=== PATIENT | male | born 1955 | race Caucasian/White ===

== ENCOUNTER → 2021-10-16 | Outpatient (CLI) | payer MEDICARE ==
[~2021-10-16] MED LIST: IOHEXOL-350 75 ML VIAL IV ONE
== END | disposition home or self-care (01) ==
LOC: RAH 08:49
PROVIDERS: ATTEND Internal Medicine Cardiovascular Disease
DX: I12.9 Hypertensive chronic kidney disease with stage 1 through stage 4 chronic kidney disease, or unspecified chronic kidney disease (principal); N18.9 Chronic kidney disease, unspecified; I70.0 Atherosclerosis of aorta
CPT/HCPCS: 74170; Q9967

== ENCOUNTER → 2022-12-11 | Outpatient (CLI) | payer MEDICARE | END | disposition home or self-care (01) | LOC: RAH 07:59 | PROVIDERS: ATTEND Physician Assistant Medical | DX: I70.201 Unspecified atherosclerosis of native arteries of extremities, right leg (principal); M79.661 Pain in right lower leg | CPT/HCPCS: 93926; 93971 ==

== ENCOUNTER → 2022-12-26 | Outpatient (CLI) | payer MEDICARE ==
[~2022-12-26] MED LIST changes: +ACET-66 PO; +IBUP-2070 PO; -IOHEXOL-350 75 ML VIAL IV ONE
== END | disposition home or self-care (01) ==
LOC: SHCH 07:51
PROVIDERS: ATTEND Internal Medicine Cardiovascular Disease
DX: I71.40 Abdominal aortic aneurysm, without rupture, unspecified (principal)
CPT/HCPCS: 93978

== ENCOUNTER 2023-02-05 17:02 | Inpatient (IN) | payer MEDICARE ==
[~2023-02-05] VITALS: Ht 185.4 cm; Wt 76.1 kg
[2023-02-05 18:26] LABS: BASOPHILS # (AUTO) 0.05 K/uL (0.00-0.20); BASOPHILS % (AUTO) 0.5 % (0.0-5.0); EOSINOPHILS # (AUTO) 0.06 K/uL (0.00-0.70); EOSINOPHILS % (AUTO) 0.6 % (0.0-8.0); HEMATOCRIT 26.5 % (42-54); IMMATURE GRANULOCYTE ABSOLUTE 0.17 K/uL (0-1); LYMPHOCYTES % (AUTO) 28.9 % (21.0-51.0); MEAN CORPUSCULAR HEMOGLOBIN 33.7 pg (27.0-33.0); MEAN CORPUSCULAR HGB CONC 33.2 g/dL (32.0-36.0); MEAN CORPUSCULAR VOLUME 101.5 fL (79-99); MONOCYTES # (AUTO) 0.8 K/uL (0.1-1.0); MONOCYTES % (AUTO) 7.8 % (3.0-13.0); NEUTROPHILS # (AUTO) 6.3 K/uL (1.8-7.7); NEUTROPHILS % (AUTO) 60.6 % (40.0-77.0); RED BLOOD CELL COUNT(AUTO) 2.61 MIL/uL (4.50-6.20); RED CELL DISTRIBUTION WIDTH 13.7 % (11.0-15.5); WHITE BLOOD COUNT (AUTO) 10.4 K/uL (4.8-10.8)
[2023-02-05 18:34] LABS: PLATELET COUNT (AUTO) 722 K/uL (130-400)
[2023-02-05 18:36] LABS: INR < 0.93 (0.85-1.15); PROTHROMBIN TIME 9.8 SEC (9.6-11.6)
[2023-02-05 18:37] LABS: CREATININE 0.6 mg/dL (0.5-1.5); POTASSIUM 3.9 mmol/L (3.5-5.1)
[2023-02-05 18:38] LABS: PARTIAL THROMBOPLASTIN TIME 27.3 SEC (26.3-35.5)
[2023-02-05 18:46] LABS: BILIRUBIN,TOTAL 0.2 mg/dL (0.2-1.0); TOTAL PROTEIN, SERUM 6.6 g/dL (6.0-8.3)
[2023-02-05] MEDS: CLINDAMYCIN IVPB 600MG/50ML 50 ML IV SCH (18:46)
[2023-02-05] MEDS ORDERED: MORPHINE 4 MG SYG IM ONE (19:00)
[2023-02-05] MEDS ORDERED: 0.9%NACL 1000ML 1,000 ML IV ONE (19:00)
[2023-02-05] MEDS ORDERED: ONDANSETRON 4MG INJ IVP ONE (19:00)
[2023-02-05 19:02] LABS: PLATELET MORPHOLOGY COMMENT INCREASED
[2023-02-05 19:23] LABS: ADD UA MICROSCOPIC NO; APPEARANCE,URINE CLEAR (CLEAR); BILIRUBIN,URINE NEGATIVE (NEGATIVE); COLOR,URINE LIGHT-YELLOW (YELLOW); GLUCOSE, URINE (UA) NEGATIVE (NEGATIVE); KETONES,URINE NEGATIVE (NEGATIVE); LEUKOCYTE ESTERASE ,URINE NEGATIVE Leu/uL (NEGATIVE); NITRATE,URINE NEGATIVE (NEGATIVE); OCCULT BLOOD,URINE NEGATIVE (NEGATIVE); PH,URINE 5.5 (5.0-8.0); PROTEIN,URINE NEGATIVE (NEGATIVE); UROBILINOGEN,URINE 0.2 mg/dL (0.2-1.0)
[2023-02-05 19:38] LABS: ERYTHROCYTE SEDIMENTATION RATE 53 MM/HR (0-20)
[2023-02-05] MEDS ORDERED: ONDANSETRON 4MG INJ IV PRN (20:00)
[2023-02-05] MEDS ORDERED: ACETAMINOPHEN 325 MG TAB PO PRN ×2 (20:00)
[2023-02-05] MEDS ORDERED: LACTATED RINGERS 1000ML 2,397 ML IV ONE (20:00)
[2023-02-05] MEDS ORDERED: VANCOMYCIN PROTOCOL PER PHARMACY IV PRN (20:00)
[2023-02-05] MEDS: MORPHINE 4 MG SYG IV PRN (20:59)
[2023-02-05] MEDS: CEFEPIME HCL 1 GM VIAL IVPB SCH (20:59)
[2023-02-05] MEDS: VANCOMYCIN 1G/250ML KIT 250 ML IV SCH (22:06)
[2023-02-05] MEDS ORDERED: LORAZEPAM 2 MG/ML 1 ML VIAL IVP PRN (23:00)
[2023-02-05] MEDS ORDERED: PHARMACY COMMUNICATION MISC PRN (23:00)
[2023-02-05] MEDS: NICOTINE 14 MG/ 24 HR PATCH TD SCH (23:15)
[2023-02-05] MEDS: CHLORDIAZEPOXIDE HCL 25 MG CAP PO SCH (23:15)
[2023-02-06] VITALS (8 sets, daily range): BP systolic 137–163; BP diastolic 82–93; PULSE 74–101; RESP 18–20; O2SAT 96–99
[2023-02-06] MEDS: MORPHINE 2 MG SYG IV PRN ×4 (01:41→21:55)
[2023-02-06] MEDS: CLINDAMYCIN IVPB 600MG/50ML 50 ML IV SCH ×3 (02:32→18:34)
[2023-02-06] MEDS: CEFEPIME HCL 1 GM VIAL IVPB SCH ×3 (04:25→20:24)
[2023-02-06 05:46] LABS: BASOPHILS # (AUTO) 0.03 K/uL (0.00-0.20); BASOPHILS % (AUTO) 0.4 % (0.0-5.0); EOSINOPHILS % (AUTO) 1.3 % (0.0-8.0); HEMATOCRIT 22.4 % (42-54); LYMPHOCYTES % (AUTO) 25.7 % (21.0-51.0); MEAN CORPUSCULAR HGB CONC 34.4 g/dL (32.0-36.0); MEAN CORPUSCULAR VOLUME 101.8 fL (79-99); MONOCYTES # (AUTO) 0.8 K/uL (0.1-1.0); MONOCYTES % (AUTO) 10.3 % (3.0-13.0); NEUTROPHILS # (AUTO) 4.9 K/uL (1.8-7.7); PLATELET COUNT (AUTO) 569 K/uL (130-400); RED CELL DISTRIBUTION WIDTH 13.7 % (11.0-15.5)
[2023-02-06] MEDS: VANCOMYCIN 1G/250ML KIT 250 ML IV SCH ×3 (05:46→21:55)
[2023-02-06 06:10] LABS: INR 0.94 (0.85-1.15); PROTHROMBIN TIME 10.9 SEC (9.6-11.6)
[2023-02-06 06:11] LABS: PARTIAL THROMBOPLASTIN TIME 29.4 SEC (26.3-35.5)
[2023-02-06 06:47] LABS: CREATININE 0.7 mg/dL (0.5-1.5); MAGNESIUM 1.1 mg/dL (1.80-2.40); PHOSPHORUS 3.8 mg/dL (2.5-4.9)
[2023-02-06] MEDS: CHLORDIAZEPOXIDE HCL 25 MG CAP PO SCH ×4 (07:00→23:00)
[2023-02-06] MEDS: FAMOTIDINE 20MG TAB PO SCH ×2 (08:09→08:16)
[2023-02-06] MEDS: NICOTINE 14 MG/ 24 HR PATCH TD SCH ×2 (08:10→23:00)
[2023-02-06] MEDS: ENOXAPARIN SODIUM 40 MG/0.4 ML SYRINGE SQ SCH (08:10)
[2023-02-06] MEDS ORDERED: METO-391 PO (15:33)
[2023-02-06] MEDS ORDERED: HYDR-4060 PO (15:33)
[2023-02-06] MEDS ORDERED: LOSA100T59 PO (15:33)
[2023-02-06] MEDS ORDERED: TAMS-1 PO (15:33)
[2023-02-06] MEDS: MAGNESIUM 2GM PREMIX 50ML 50 ML IV PRN (16:53)
[2023-02-07] VITALS (7 sets, daily range): BP systolic 135–156; BP diastolic 72–92; PULSE 71–95; RESP 20–24; O2SAT 98
[2023-02-07] MEDS: CLINDAMYCIN IVPB 600MG/50ML 50 ML IV SCH ×3 (02:07→18:14)
[2023-02-07 03:17] LABS: BASOPHILS # (AUTO) 0.03 K/uL (0.00-0.20); BASOPHILS % (AUTO) 0.4 % (0.0-5.0); EOSINOPHILS # (AUTO) 0.06 K/uL (0.00-0.70); EOSINOPHILS % (AUTO) 0.8 % (0.0-8.0); HEMATOCRIT 23.3 % (42-54); IMMATURE GRANULOCYTE ABSOLUTE 0.05 K/uL (0-1); LYMPHOCYTES # (AUTO) 1.7 K/uL (1.0-4.8); LYMPHOCYTES % (AUTO) 21.5 % (21.0-51.0); MEAN CORPUSCULAR HEMOGLOBIN 34.5 pg (27.0-33.0); MEAN CORPUSCULAR HGB CONC 33.9 g/dL (32.0-36.0); MEAN CORPUSCULAR VOLUME 101.7 fL (79-99); MONOCYTES # (AUTO) 0.8 K/uL (0.1-1.0); MONOCYTES % (AUTO) 10.5 % (3.0-13.0); NEUTROPHILS # (AUTO) 5.3 K/uL (1.8-7.7); NEUTROPHILS % (AUTO) 66.2 % (40.0-77.0); PLATELET COUNT (AUTO) 567 K/uL (130-400); RED BLOOD CELL COUNT(AUTO) 2.29 MIL/uL (4.50-6.20); RED CELL DISTRIBUTION WIDTH 13.7 % (11.0-15.5)
[2023-02-07 03:22] LABS: CREATININE 0.6 mg/dL (0.5-1.5); POTASSIUM 3.9 mmol/L (3.5-5.1)
[2023-02-07] MEDS: CEFEPIME HCL 1 GM VIAL IVPB SCH ×3 (03:44→21:00)
[2023-02-07] MEDS: MORPHINE 2 MG SYG IV PRN ×2 (03:44→18:24)
[2023-02-07] MEDS: VANCOMYCIN 1G/250ML KIT 250 ML IV SCH ×2 (05:21→14:15)
[2023-02-07] MEDS: CHLORDIAZEPOXIDE HCL 25 MG CAP PO SCH ×3 (07:00→23:00)
[2023-02-07] MEDS: FAMOTIDINE 20MG TAB PO SCH (09:00)
[2023-02-07] MEDS: ENOXAPARIN SODIUM 40 MG/0.4 ML SYRINGE SQ SCH (09:13)
[2023-02-07] MEDS: MAGNESIUM 2GM PREMIX 50ML 50 ML IV PRN (09:13)
[2023-02-07] MEDS: NICOTINE 14 MG/ 24 HR PATCH TD SCH ×2 (09:13→23:00)
[2023-02-07] MEDS: MORPHINE 4 MG SYG IV PRN (09:33)
[2023-02-08] VITALS: BP 146/83; PULSE 75; RESP 18
[2023-02-08] MEDS: CLINDAMYCIN IVPB 600MG/50ML 50 ML IV SCH (02:47)
[2023-02-08] MEDS: MORPHINE 2 MG SYG IV PRN (03:38)
[2023-02-08 04:00] VITALS: BP 145/78; PULSE 72; RESP 18
[2023-02-08] MEDS: CEFEPIME HCL 1 GM VIAL IVPB SCH (04:56)
[2023-02-08] MEDS: CHLORDIAZEPOXIDE HCL 25 MG CAP PO SCH (06:55)
[2023-02-08 08:00] VITALS: BP 139/82; PULSE 73; RESP 16
[2023-02-08] MEDS: NICOTINE 14 MG/ 24 HR PATCH TD SCH (08:43)
[2023-02-08] MEDS: ENOXAPARIN SODIUM 40 MG/0.4 ML SYRINGE SQ SCH (08:43)
[2023-02-08] MEDS: FAMOTIDINE 20MG TAB PO SCH (08:43)
[2023-02-08 08:50] VITALS: O2SAT 96
[2023-02-08] MEDS ORDERED: VANCOMYCIN 1G/250ML KIT 250 ML IV SCH (09:00)
[2023-02-08] MEDS ORDERED: CLIN-141 PO (10:35)
== END 2023-02-08 11:30 | disposition home or self-care (01) | DRG 603 ==
LOC: EDH 17:02 → EDHIP 19:46 → 4CH 02-06 02:22
PROVIDERS: ADMIT Internal Medicine; ATTEND Internal Medicine
DX: L03.113 Cellulitis of right upper limb (principal); I10 Essential (primary) hypertension; F10.20 Alcohol dependence, uncomplicated; F17.210 Nicotine dependence, cigarettes, uncomplicated; Z88.0 Allergy status to penicillin; S42.91XD Fracture of right shoulder girdle, part unspecified, subsequent encounter for fracture with routine healing; W18.39XD Other fall on same level, subsequent encounter
CPT/HCPCS: 29105; 36415; 73020; 73080; 73130; 80048; 80053; 80202; 81003; 82550; 83605; 83735; 84100; 84145; 84484; 85025; 85610; 85651; 85730; 87040; 87088; G0378; J0692; J1650; J2270; J2405; J3370; J3475; J3490; J7030; J7120

== ENCOUNTER → 2023-04-13 | Outpatient (CLI) | payer MEDICARE ==
[~2023-04-13] MED LIST changes: -ACET-66 PO; +HYDR-4060 PO; -IBUP-2070 PO; +METO25TA3 PO; +PANT40TA PO; +TAMS-1 PO; +[UNRECOGNIZED DRUG - CODE] TD
== END | disposition home or self-care (01) ==
LOC: OIH 12:29
PROVIDERS: ATTEND Orthopaedic Surgery Orthopaedic Surgery of the Spine
DX: S42.201D Unspecified fracture of upper end of right humerus, subsequent encounter for fracture with routine healing (principal); X58.XXXD Exposure to other specified factors, subsequent encounter
CPT/HCPCS: 73030

== ENCOUNTER → 2023-05-19 | Outpatient (CLI) | payer MEDICARE | END | disposition home or self-care (01) | LOC: RAH 14:09 | PROVIDERS: ATTEND Internal Medicine Gastroenterology | DX: J44.9 Chronic obstructive pulmonary disease, unspecified (principal); R63.4 Abnormal weight loss; M47.815 Spondylosis without myelopathy or radiculopathy, thoracolumbar region; I70.0 Atherosclerosis of aorta | CPT/HCPCS: 71046 ==

== ENCOUNTER → 2023-05-20 | Outpatient (CLI) | payer MEDICARE ==
[~2023-05-20] MED LIST changes: +IOHEXOL 350 MG/ML 100ML INFUS..BTL IV ONE
== END | disposition home or self-care (01) ==
LOC: RAH 08:14
PROVIDERS: ATTEND Internal Medicine Gastroenterology
DX: K57.90 Diverticulosis of intestine, part unspecified, without perforation or abscess without bleeding (principal); R10.13 Epigastric pain; R63.4 Abnormal weight loss; J44.9 Chronic obstructive pulmonary disease, unspecified; M47.815 Spondylosis without myelopathy or radiculopathy, thoracolumbar region; I70.90 Unspecified atherosclerosis
CPT/HCPCS: 74178; Q9967

== ENCOUNTER → 2024-01-17 | Outpatient (CLI) | payer MEDICARE | END | disposition home or self-care (01) | LOC: RAH 09:44 | PROVIDERS: ATTEND Internal Medicine Cardiovascular Disease | DX: K57.30 Diverticulosis of large intestine without perforation or abscess without bleeding (principal); I70.0 Atherosclerosis of aorta; I70.8 Atherosclerosis of other arteries; I77.1 Stricture of artery; I71.40 Abdominal aortic aneurysm, without rupture, unspecified; R10.9 Unspecified abdominal pain | CPT/HCPCS: 74174; 71275; Q9967 ==

== ENCOUNTER 2024-04-07 09:00 | Inpatient (IN) | payer MEDICARE ==
[~2024-04-07] VITALS: Ht 182.9 cm; Wt 69.9 kg
[~2024-04-07 09:00] MED LIST changes: -HYDR-4060 PO; -IOHEXOL 350 MG/ML 100ML INFUS..BTL IV ONE; -METO25TA3 PO; -PANT40TA PO; -[UNRECOGNIZED DRUG - CODE] TD
[2024-04-07 10:13] LABS: BASOPHILS # (AUTO) 0.05 K/uL (0.00-0.20); BASOPHILS % (AUTO) 0.5 % (0.0-5.0); EOSINOPHILS # (AUTO) 0.03 K/uL (0.00-0.70); EOSINOPHILS % (AUTO) 0.3 % (0.0-8.0); HEMATOCRIT 40.2 % (42-54); IMMATURE GRANULOCYTE ABSOLUTE 0.02 K/uL (0-1); LYMPHOCYTES # (AUTO) 1.5 K/uL (1.0-4.8); LYMPHOCYTES % (AUTO) 16.1 % (21.0-51.0); MEAN CORPUSCULAR HEMOGLOBIN 35.1 pg (27.0-33.0); MEAN CORPUSCULAR HGB CONC 33.8 g/dL (32.0-36.0); MEAN CORPUSCULAR VOLUME 103.9 fL (79-99); NEUTROPHILS # (AUTO) 6.5 K/uL (1.8-7.7); NEUTROPHILS % (AUTO) 71.9 % (40.0-77.0); PLATELET COUNT (AUTO) 269 K/uL (130-400); RED BLOOD CELL COUNT(AUTO) 3.87 MIL/uL (4.50-6.20); RED CELL DISTRIBUTION WIDTH 13.5 % (11.0-15.5); WHITE BLOOD COUNT (AUTO) 9.1 K/uL (4.8-10.8)
[2024-04-07 10:20] VITALS: BP 175/93; PULSE 78; RESP 19; TEMP 97.2
[2024-04-07 10:21] LABS: CREATININE 0.8 mg/dL (0.5-1.3); POTASSIUM 4.3 mmol/L (3.5-5.1)
[2024-04-07 10:24] LABS: APPEARANCE,URINE CLEAR (CLEAR); BILIRUBIN,URINE NEGATIVE (NEGATIVE); COLOR,URINE DARK-YELLOW (YELLOW); GLUCOSE, URINE (UA) NEGATIVE (NEGATIVE); KETONES,URINE NEGATIVE (NEGATIVE); LEUKOCYTE ESTERASE ,URINE 25 Leu/uL (NEGATIVE); NITRATE,URINE NEGATIVE (NEGATIVE); OCCULT BLOOD,URINE NEGATIVE (NEGATIVE); PH,URINE 5.5 (5.0-8.0); PROTEIN,URINE 20 mg/dL (NEGATIVE)
[2024-04-07 10:27] LABS: ADD UA MICROSCOPIC YES
[2024-04-07 10:30] LABS: MUCUS,URINE RARE LPF (None Seen); RBC,URINE 0-1 /HPF (0-1); SQUAMOUS EPITHELIAL CELL,UR RARE /HPF (0-2); WBC,URINE 0-1 /HPF (0-1)
[2024-04-07 10:36] LABS: INR 0.96 (0.85-1.15); PROTHROMBIN TIME 10.4 SEC (9.6-11.6)
[2024-04-07 10:37] LABS: PARTIAL THROMBOPLASTIN TIME 26.2 SEC (26.3-35.5)
[2024-04-07] MEDS ORDERED: SUCR1TAB2 PO (10:50)
[2024-04-07] MEDS ORDERED: LOSA50TA64 PO (10:50)
[2024-04-07] MEDS ORDERED: FAMO40TA7 PO (10:50)
[2024-04-07] MEDS ORDERED: ATOR20TA65 PO (10:50)
--- NOTE | 2024-04-07 10:52 | EKG ---
[facility] Test Date: 2024-04-07 Test Time: 10:57:50 Pat Name: CESAR LUGO Department: Room: Gender: M [employer] Worker: [id number] : 1955 Requested By: Jarred ERICKSON Order Number: [id number] Reading MD: Daniel Armijo Measurements Intervals [place] Rate: 67 P: 73 CA: 165 QRS: 83 QRSD: 135 T: 68 QT: 405 QTc: 429 Interpretive Statements Sinus rhythm Right bundle branch block Compared to ECG 03/10/2023 18:27:24 Right bundle-branch block now present Electronically Signed On 04-09-2024 17:35:17 SUPERVISOR LENS GENERATING by Daniel Armijo Please click the below link to view image of tracing.
--- NOTE | 2024-04-07 11:05 | HMCIMG ---
CHEST 1VW HISTORY: Preop COMPARISON: None FINDINGS: A frontal projection of the chest was obtained. No acute pulmonary infiltrates is seen. The heart is normal in size. Prominent interstitial markings are seen. Degenerative changes are seen. Aortic calcifications are seen. IMPRESSION: 1. No acute pulmonary infiltrate is seen.
[2024-04-10] VITALS (29 sets, daily range): BP systolic -10–171; BP diastolic -10–96; PULSE 66–111; RESP 12–29; TEMP 97.3–98.4; O2SAT 97–100
[2024-04-10] MEDS: ceFAZolin SODIUM 2 GM VIAL ONE (05:45)
[2024-04-10] MEDS: CLINDAMYCIN IVPB 900MG/50ML 50 ML IV ONE (05:50)
[2024-04-10] MEDS ORDERED: MIDAZOLAM HCL 1 MG/ML 2ML VIAL ONE (06:55)
[2024-04-10] MEDS ORDERED: proPOFol 10 MG/ML 20ML VIAL IV ONE (06:55)
[2024-04-10] MEDS ORDERED: phenylEPHRINE HCL 10 MG/ML 1ML VIAL IV ONE (06:56)
[2024-04-10] MEDS ORDERED: rocuRONium bROMide 10MG/1ML 5ML VL ONE (06:56)
[2024-04-10] MEDS ORDERED: FENTanyl CITRate PF 50 MCG/1 ML 2ML VIAL ONE ×2 (06:57)
[2024-04-10] MEDS ORDERED: GLYCOPYRROLATE 0.2 MG/ML 5 ML VIAL ONE (06:57)
[2024-04-10] MEDS ORDERED: ondanSETRON 4MG INJ ONE (06:58)
[2024-04-10] MEDS ORDERED: NEOSTIGMINE METHYLSULFATE 1MG/ML IV ONE (06:58)
[2024-04-10] MEDS ORDERED: IODIXANOL 320 MG/ML 100 ML VIAL ONE ×2 (07:12→09:41)
[2024-04-10] MEDS ORDERED: HEParin 10,000 UNIT/10ML (1,000 UNIT/ML) VIAL ONE (07:12)
[2024-04-10] MEDS ORDERED: HEParin-NS 1,000 UNIT/500 ML 1,000 ML IV ONE (07:13)
[2024-04-10] MEDS ORDERED: NITROGLYCERIN 50MG VIAL ONE (07:13)
[2024-04-10] MEDS ORDERED: HEParin 1,000 UNIT VIAL ONE (07:14)
[2024-04-10] MEDS ORDERED: ePHEDrine SULFate 50 MG/ML AMPULE ONE (08:28)
[2024-04-10] MEDS: 0.9%NACL 1000ML 1,000 ML IV ONE (08:43)
[2024-04-10] MEDS ORDERED: METO50TA18 PO (08:46)
[2024-04-10] MEDS ORDERED: HEParin-NS 1,000 UNIT/500 ML 500 ML IV ONE ×2 (09:57→11:45)
[2024-04-10] MEDS ORDERED: 0.9%NACL 1000ML 1,000 ML IV SCH (12:00)
[2024-04-10] MEDS ORDERED: NOREPINEPHRIN 4MG/NS 250ML 250 ML IV PRN (12:00)
[2024-04-10] MEDS ORDERED: ondanSETRON 4MG INJ IV PRN (12:00)
[2024-04-10] MEDS ORDERED: DEXTROSE 50%-WATER 50 ML DISP.SYRIN IV PRN (12:00)
[2024-04-10] MEDS ORDERED: NITROGLYCERIN 50MG/D5W 250ML 250 BOT IV PRN (12:00)
[2024-04-10] MEDS ORDERED: ASPIRIN 81MG CHEW TAB PO ONE (12:00)
[2024-04-10] MEDS: LACTATED RINGERS 1000ML 0 ML IV ONE (12:50)
[2024-04-10] MEDS: ASPIRIN 81MG CHEW TAB PO ONE (14:08)
[2024-04-10] MEDS: SUCRALFATE 1 GM TABLET PO SCH (14:08)
[2024-04-10] MEDS: CLINDAMYCIN IVPB 300MG/50ML 50 ML IV SCH (15:23)
--- NOTE | 2024-04-10 15:50 | CONS ---
[facility] CONSULTATION NOTE Date of Service: Apr 10, 2024 Reason for Consultation: [Abdominal aortic aneurysm, S/P endoluminal repair on 04/10/2024 ] Requesting Physician: [ Dr. Orozco ] HISTORY OF PRESENT ILLNESS: 68-year-old male with past medical history of essential hypertension hyperlipidemia, CAD, paroxysmal atrial fibrillation, BPH COPD, heavy smoker, who had recent outpatient follow up with his primary coal deliverer for ongoing evaluation and management of abdominal aortic aneurysm. Patient had a recent CT angio of the abdominal aorta revealing presence of a dissection in the mid abdominal aorta, saccular aneurysm with the appearance of a penetrating ulcer. Upon further discussions with the patient he was given options for surgical intervention. Patient agreed to proceed with surgical interventions, and on 04/10/2024 underwent successful endoluminal graft placement in the left accessory renal artery, as well as successful bifurcated endoluminal graft placement in the abdominal aorta performed by Dr. Orozco. Patient tolerated procedure well, remains admitted to telemetry. Hospitalist team has been called on consult for medical mentioned. At the time of my examination patient is awake alert in no distress. He denied chest pain shortness of breath fever or chills. Most recent vitals reviewed stable. Labs are pending. Of note patient has also had a recent diagnosis of a lung mass, and having undergone a PET scan which results are not available to me at this time. He is followed in the outpatient setting by his primary boardmarker Dr. Shipman, and is pending oncology evaluation. REVIEW OF SYSTEMS CONSTITUTIONAL: Denies fevers, chills, or night sweats. No unintentional weight loss reported. NEUROLOGICAL: Denies headache, amaurosis fugax, motor weakness, sensory deficit , vertigo/spinning sensation, gait abnormalities, or tremors. ENT: No hearing loss, otalgia, otorrhea, rhinitis, rhinorrhea, hoarseness, or sore throat. CARDIOVASCULAR: As mentioned in HPI PULMONARY: Denies any shortness of breath, cough, phlegm/sputum, hemoptysis, pleuritic chest pain. SLEEP: Denies morning headaches, daytime somnolence or napping. Denies difficulty falling asleep, staying asleep, waking from sleep. Denies knowledge of snoring. GASTROINTESTINAL: Denies any type of dysphagia to either liquids or solids. Denies nausea, vomiting, pyrosis, early satiety, abdominal pain, diarrhea, constipation, or changes in stool consistency or caliber. Denies coffee-ground emesis, hematemesis, hematochezia, or melanotic stools. GENITOURINARY: Denies frequency, urgency, nocturia, hematuria or incontinence (Storage/Irritative symptoms.) Low urinary stream, straining to void, urinary intermittency or hesitancy, splitting of the voiding stream, terminal dribbling. ENDOCRINOLOGIC: Denies polyuria, polydipsia, polyphagia or heat/cold intolerances. HEMATOLOGIC: Denies thrombophilia/previous clots, or coagulopathy/bleeding disorders. ONCOLOGIC: Denies personal history of malignancy. DERMATOLOGIC: Denies rashes or pruritus. PSYCHIATRIC: Denies any suicidal or homicidal ideation. Denies hallucinations. PAST MEDICAL HISTORY: As mentioned in HPI PAST SURGICAL HISTORY: AAA repair Abdominal hernia repair Left inguinal hernia repair PAST SOCIAL HISTORY: Positive for heavy alcohol consumption, more than one bottle of wine per day. Positive for tobacco/cigarette smoking. No drug abuse. FAMILY HISTORY: CAD. Hypertension. Coded Allergies: Penicillins (Unverified Allergy, Intermediate, HIVES, 03/11/23) PHYSICAL EXAM GENERAL APPEARANCE: The patient is awake, alert, and oriented, in no acute cardiopulmonary distress. NEUROLOGICAL: Cranial nerves II-XII grossly intact. Motor is 5/5 in bilateral upper and lower extremities proximal to distal. No sensory deficits. HEENT: Face is symmetric. Pupils are equal and reactive. Extraocular movements are intact. NECK: Supple. No JVD. No thyromegaly. No submental, submandibular, pre- /postauricular, occipital or supraclavicular lymphadenopathy. CHEST: Normal chest expansion. No Telemetry. LUNGS: Absence of any rales, rhonchi or any wheezing. CARDIOVASCULAR: Regular. S1 and S2 normal. No appreciable rubs, murmurs or gallops. ABDOMEN: Soft, nontender, and nondistended. There is no rebound, voluntary guarding, or rigidity. : Gonsales in place, pink color urine output noted. EXTREMITIES: Non-edematous and not cyanotic. No clubbing. Good capillary refill. SKIN: No skin breakdown. Vital Sign (Last 24 Hours) 04/10/24 04/10/24 04/10/24 05:45 12:42 14:15 Temp 97.3 Pulse 69 Resp 16 B/P (MAP) 139/64 (89) Pulse Ox 98 O2 Delivery Non-Rebreather+ O2 Flow Rate 15 FiO2 100 LABS: Laboratory: Test 04/10/24 14:56 Range/Units Activated Partial Thromboplast Time 34.0 26.3-35.5 SEC DIAGNOSTICS / RADIOLOGY: [ ] ASSESSMENT: Abdominal aortic dissection with saccular aneurysm, status post endoluminal graft placement in the left accessory renal artery, and bifurcated endoluminal graft placement in the abdominal aorta on 04/10/2024. CAD Essential hypertension Hyperlipidemia BPH COPD Lung mass Current/active smoker PLAN: Continue admission to telemetry floor under hospitalist team Obtain home medications, reconcile and resume accordingly Patient is status post successful endoluminal graft placement as mentioned above. Continue to follow up with Cardiology recommendations Labs: CBC BMP PT/PTT, UA Pain control CLD and advance as tolerated DVT and GI prophylaxis P.r.n. medications for fever, pain, nausea, constipation Follow-up a.m. labs Further orders per hospital course ADVANCED CARE PLANNING 1. Which of the following were discussed? Hospice Care - No Therapeutic options - Yes Advance Directives - Yes Other discussions - 2. Discussed with who? The patient 3. Voluntary nature of this service was explained to the patient? Yes 4. Amount of time spent - __ 20 minutes 5. Reviewed by Physician? (if this service was performed by NPP) Yes DICKSON RAMIREZ Apr 10, 2024 15:50
[2024-04-10 16:30] LABS: CREATININE 0.9 mg/dL (0.5-1.3); MAGNESIUM 1.2 mg/dL (1.80-2.40); POTASSIUM 4.8 mmol/L (3.5-5.1)
[2024-04-10] MEDS: INSULIN humuLIN R 100 UNIT/ML 3ML SQ SCH (16:30)
[2024-04-10] MEDS: MAGNESIUM 2GM PREMIX 50ML 50 ML IV PRN (17:24)
[2024-04-10] MEDS: MELATONIN 5 MG TABLET PO ONE (20:03)
[2024-04-11] VITALS (13 sets, daily range): BP systolic 115–154; BP diastolic 64–94; PULSE 71–103; RESP 14–23; TEMP 98.1–98.4; O2SAT 94–98
[2024-04-11] MEDS: morPHINE 4 MG SYG IV PRN (00:25)
[2024-04-11 04:23] LABS: HEMATOCRIT 31.3 % (42-54); MEAN CORPUSCULAR HEMOGLOBIN 35.3 pg (27.0-33.0); MEAN CORPUSCULAR HGB CONC 34.2 g/dL (32.0-36.0); MEAN CORPUSCULAR VOLUME 103.3 fL (79-99); RED BLOOD CELL COUNT(AUTO) 3.03 MIL/uL (4.50-6.20); RED CELL DISTRIBUTION WIDTH 13.7 % (11.0-15.5); WHITE BLOOD COUNT (AUTO) 10.4 K/uL (4.8-10.8)
[2024-04-11 04:40] LABS: POTASSIUM 4.5 mmol/L (3.5-5.1)
--- NOTE | 2024-04-11 05:31 | PR ---
PROCEDURES PERFORMED: * Placement of pigtail catheter in the abdominal aorta. * Abdominal aortogram. * Selective celiac artery angiogram. * Selective SMA angiogram. * Selective right and left renal artery angiogram. * Selective left accessory renal artery angiogram. * Placement of an endoluminal graft Viabahn 5 x 15 cm in the left accessory renal vein. * Balloon angioplasty and stenting of the left common and external iliac arteries. * Placement of an endoluminal graft bifurcated [employer] Endurant IIs in the abdominal aorta with placement of right and left iliac extension limbs. * Percutaneous access and repair of the right and left common femoral arteries for 14-Swedish sheaths. INDICATIONS: * Saccular infrarenal abdominal aortic aneurysm with aortic dissection and contained ruptured features. * Peripheral vascular disease. * Accessory renal artery arising at the level of the aneurysm. COMPLICATIONS: None. TOTAL CONTRAST: Approximately 190 mL. ANESTHESIA: General anesthesia with endotracheal intubation. RETAIL SERVICE LEAD MERCHANDISER: Tom Orozco II MD ESTIMATED BLOOD LOSS: 100 mL. DESCRIPTION OF PROCEDURE: The patient was taken to the cardiac labor relations analyst after the appropriate operative consents were signed. He was prepped and draped in the usual fashion. After anesthesia was administered and the patient was endotracheally intubated, the left brachial artery was accessed and a 6-Swedish sheath was advanced in retrograde fashion by modified Seldinger technique. This was done utilizing ultrasound guidance. Ultrasound-guided access of the right and left common femoral artery was also performed and Preclose sutures were deployed after 6-Swedish sheath had been placed. The femorals were upsized to 9-Swedish sheath. At this point, left coronary bypass graft catheter was advanced and placed in the celiac trunk. This was imaged in multiplane and was patent with no significant stenotic lesions. The catheter was then repositioned into the SMA that was imaged and was felt to be patent with no significant stenotic lesions. Right and left renal arteries were imaged and were patent. The left accessory renal artery was imaged and had a 50% lesion in its proximal portion. The JOVITA was patent. At this point, a machine guide base winder 7-Swedish sheath was advanced over the indwelling wire and positioned selectively in the left accessory renal artery. A 0.014 wire was advanced to position the distal venous circulation. A Viabahn 5 x 15 mm was advanced and positioned into the left accessory renal artery, but not deployed. At this point, the left iliac artery at the junction of the external and internal iliac was ballooned with a 6 mm balloon because of inability to advance a 14 mm wire. A pigtail catheter was advanced to position into the abdominal aorta. Abdominal aortogram was performed identifying the landmarks in the area of dissection. The patient was also noted to have severe peripheral vascular disease with chronic occlusion of the left internal iliac artery and a 70% stenotic lesion in the right internal iliac artery. The right common iliac artery had a chronic-appearing dissection. At this point, the main body of the graft Endurant IIs was advanced from the right femoral artery and deployed below the level of renal arteries. The contralateral gate was cannulated, the contralateral limb was deployed and the ipsilateral limb was then deployed. The body and both limbs were simultaneously dilated with Endurant balloons. At this point, the left accessory renal Viabahn graft was deployed. Final angiogram was performed confirming patency of the celiac, SMA and both renals as well as the accessory left renal artery endoluminal graft. The patient had no evidence of endoleak. At this point, the Preclose sutures were completed and finalized with good hemostasis. The patient tolerated the procedure well, left the cardiac labor relations analyst in stable condition. FINAL IMPRESSION: * Successful endoluminal graft placement of the left accessory renal artery with a Viabahn 5 x 15 mm graft snorkel to be placed above the renal arteries. * Successful endoluminal graft placement of the infrarenal abdominal aorta with an Endurant IIs with right and left iliac extension limbs. * Successful balloon angioplasty of the left external and left common iliac arteries. PLAN: Continue to optimize medical management. TID: [id number] RECEIPT: [id number]
--- NOTE | 2024-04-11 07:42 | CONS ---
Consult Note Vitals/Labs Vital Signs Date Time Temp Pulse Resp B/P (MAP) Pulse Ox O2 Delivery O2 Flow Rate FiO2 04/11/24 05:55 88 17 141/85 98 Room Air 04/11/24 04:00 0 21 04/11/24 03:47 98.1 Laboratory Tests 04/10/24 14:56 04/11/24 03:59 REASON FOR CONSULT: Medical management HISTORY OF PRESENT ILLNESS: Patient is a 68-year-old male with past medical history significant for Essential hypertension, Hyperlipidemia, CAD, Paroxysmal atrial fibrillation, BPH, COPD, heavy smoker, who had recent outpatient follow up with his primary ratchet setter for ongoing evaluation and management of abdominal aortic aneurysm. A recent CT angio of the abdominal aorta revealed the presence of a dissection in the mid abdominal aorta, saccular aneurysm with the appearance of a penetrating ulcer. Upon further discussions with the patient he was given options for surgical intervention. Patient agreed to proceed with surgical interventions, and on 04/10/2024 underwent successful endoluminal graft placement in the left accessory renal artery, as well as successful bifurcated endoluminal graft placement in the abdominal aorta performed by Dr. Orozco. Interval History 04/11/24: Lying in bed at the time of evaluation. Alert and oriented and in no obvious distress. Patient is status post endoluminal graft placement in the left accessory renal artery and the abdominal aorta post op day 1. Denies any chest pain, shortness of breath or palpitations. States that he is ambulating around his room but has not had a bowel movement yet. Patient is on a full liquid diet with orders to advance as tolerated. Patient was seen by Dr Orozco this morning. Assessment showed a left brachial swelling which is erythematous and measures about 5cm x5cm in diameter. An ultrasound of the left upper extremity ordered to rule out a hematoma. Vital signs from this morning were unremarkable. Labs showed a trending down of Hb from 13.6 TO 10.7. Otherwise other labs were unremarkable. SOCIAL HISTORY: *Heavy alcohol drinker *Smokes tobacco and cigarettes *Denies recreational drug use ASSESSMENT: Status post endoluminal graft placement in the left accessory renal artery and the abdominal aorta post op day 1. Essential Hypertension Heavy alcohol consumption, more than 1 bottle of wine per day CAD POA Hyperlipidemia POA BPH POA COPD POA Lung mass POA Current/active smoker PLAN: Status post endoluminal graft placement in the left accessory renal artery and the abdominal aorta post op day 1. *Patient is ambulating around his room but has not had a bowel movement yet. *Patient is on a full liquid diet with orders to advance as tolerated. *Seen by Dr Orozco today post surgery *Patient with left brachial erythema and swelling. Ultrasound ordered to r/o a hematoma Hyperlipidemia *Continue with Atorvastatin 20mg as ordered. Essential Hypertension POA CAD POA *Continue with metoprolol 100mg daily as ordered. *Continue with Losartan 50mg daily as ordered. *Continue with Aspirin 81mg daily as ordered *Follow hemodynamics. *Vital signs per facility protocol COPD POA Lung mass POA *Supplemental oxygen as needed. *BiPAP as necessary for respiratory distress *Titrate Fio2 to keep Spo2> or = 90% *DuoNeb and CPT as needed *IS hourly while awake for pulmonary hygiene *Out of bed to chair as tolerated. *Maintain aspiration precautions at all times. Heavy alcohol consumption, more than 1 bottle of wine per day Current/active smoker *Educated about the need to quit smoking and excessive drinking. Patient History: Asthma FATHER Carcinomas MOTHER, , Cause: Metastasis to brain SISTER (LUNG CA METS) Chronic obstructive pulmonary disease MOTHER, , Cause: Metastasis to brain Hypertension MOTHER, , Cause: Metastasis to brain Allergies: Coded Allergies: Penicillins (Unverified Allergy, Intermediate, HIVES, 03/11/23) Medications Current Medications Cefazolin Sodium 2 gm STK-MED ONCE .ROUTE; Start 04/10/24 at 05:45; Stop 04/10/24 at 05:46; Status DC Lactated Ringer's 0 ml @ As Directed STK-MED ONCE IV; Start 04/10/24 at 05:45; Stop 04/10/24 at 05:46; Status DC Sodium Chloride 1,000 ml @ As Directed STK-MED ONCE IV Last administered on 04/10/24at 08:43; Start 04/10/24 at 05:50; Stop 04/10/24 at 05:50; Status DC Clindamycin HCl/ Dextrose 50 ml @ As Directed STK-MED ONCE IV; Start 04/10/24 at 05:50; Stop 04/10/24 at 05:51; Status DC Midazolam HCl 2 mg STK-MED ONCE .ROUTE; Start 04/10/24 at 06:55; Stop 04/10/24 at 06:56; Status DC Propofol 200 mg STK-MED ONCE IV; Start 04/10/24 at 06:55; Stop 04/10/24 at 06:56; Status DC Phenylephrine HCl 10 mg STK-MED ONCE IV; Start 04/10/24 at 06:56; Stop 04/10/24 at 06:56; Status DC Rocuronium [place] 50 mg STK-MED ONCE .ROUTE; Start 04/10/24 at 06:56; Stop 04/10/24 at 06:56; Status DC Fentanyl Citrate 100 mcg STK-MED ONCE .ROUTE; Start 04/10/24 at 06:57; Stop 04/10/24 at 06:57; Status DC Fentanyl Citrate 100 mcg STK-MED ONCE .ROUTE; Start 04/10/24 at 06:57; Stop 04/10/24 at 06:57; Status DC Glycopyrrolate 1 mg STK-MED ONCE .ROUTE; Start 04/10/24 at 06:57; Stop 04/10/24 at 06:58; Status DC Neostigmine Methylsulfate 10 mg STK-MED ONCE IV; Start 04/10/24 at 06:58; Stop 04/10/24 at 06:58; Status DC Ondansetron HCl 4 mg STK-MED ONCE .ROUTE; Start 04/10/24 at 06:58; Stop 04/10/24 at 06:58; Status DC Iodixanol 100 ml STK-MED ONCE .ROUTE; Start 04/10/24 at 07:12; Stop 04/10/24 at 07:12; Status DC Heparin Sodium (Porcine) 10,000 unit STK-MED ONCE .ROUTE; Start 04/10/24 at 07:12; Stop 04/10/24 at 07:13; Status DC Heparin Sodium/ Sodium Chloride 1,000 ml @ As Directed STK-MED ONCE IV; Start 04/10/24 at 07:13; Stop 04/10/24 at 07:13; Status DC Nitroglycerin 50 mg STK-MED ONCE .ROUTE; Start 04/10/24 at 07:13; Stop 04/10/24 at 07:13; Status DC Heparin Sodium (Porcine) 1,000 unit STK-MED ONCE .ROUTE; Start 04/10/24 at 07:14; Stop 04/10/24 at 07:14; Status DC Ephedrine Sulfate 50 mg STK-MED ONCE .ROUTE; Start 04/10/24 at 08:28; Stop 04/10/24 at 08:28; Status DC Iodixanol 100 ml STK-MED ONCE .ROUTE; Start 04/10/24 at 09:41; Stop 04/10/24 at 09:41; Status DC Heparin Sodium/ Sodium Chloride 500 ml @ As Directed STK-MED ONCE IV; Start 04/10/24 at 09:57; Stop 04/10/24 at 09:57; Status DC Heparin Sodium/ Sodium Chloride 500 ml @ As Directed STK-MED ONCE IV; Start 04/10/24 at 11:45; Stop 04/10/24 at 11:45; Status DC Ondansetron HCl 4 mg Q6H PRN IV; Start 04/10/24 at 12:00; Stop 05/10/24 at 11:59 Morphine Sulfate 3 mg Q4H PRN IV Last administered on 04/11/24at 00:25; Start 04/10/24 at 12:00; Stop 04/17/24 at 11:59 Morphine Sulfate 5 mg Q4H PRN IV Last administered on 04/10/24at 15:23; Start 04/10/24 at 12:00; Stop 04/15/24 at 11:59 Sodium Chloride 1,000 ml @ 150 mls/hr AD IV; Start 04/10/24 at 12:00; Stop 04/11/24 at 06:00; Status DC Dextrose 50 ml AD PRN IV; Start 04/10/24 at 12:00; Stop 05/10/24 at 11:59 Insulin Human Regular INSULIN SLIDING SCAL... ACHS SQ; Start 04/10/24 at 16:30; Stop 05/10/24 at 16:29 Aspirin 81 mg DAILY PO; Start 04/11/24 at 09:00; Stop 05/11/24 at 08:59 Aspirin 81 mg ONCE ONCE PO; Start 04/10/24 at 12:00; Stop 04/10/24 at 12:18; Status DC Clindamycin HCl/ Dextrose 50 ml @ 100 mls/hr Q8H IV Last administered on 04/10/24at 23:15; Start 04/10/24 at 16:00; Stop 04/11/24 at 00:29; Status DC Nitroglycerin/ Dextrose 250 ml @ 0 mls/hr PROTOCOL PRN IV; Start 04/10/24 at 12:00; Stop 05/10/24 at 11:59 Norepinephrine 250 ml @ 0 mls/hr PROTOCOL PRN IV; Start 04/10/24 at 12:00; Stop 05/10/24 at 11:59 Atorvastatin Calcium 20 mg HS PO; Start 04/11/24 at 21:00; Stop 05/11/24 at 20:59 Losartan Potassium 50 mg DAILY PO; Start 04/11/24 at 09:00; Stop 05/11/24 at 08:59 Metoprolol Tartrate 100 mg DAILY PO; Start 04/11/24 at 09:00; Stop 05/11/24 at 08:59 Sucralfate 1 gm TID PO Last administered on 04/10/24at 20:03; Start 04/10/24 at 14:00; Stop 05/10/24 at 13:59 Tamsulosin HCl 0.4 mg DAILY PO; Start 04/11/24 at 09:00; Stop 05/11/24 at 08:59 Famotidine 20 mg DAILY PO; Start 04/11/24 at 09:00; Stop 05/11/24 at 08:59 Aspirin 324 mg ONCE ONCE PO Last administered on 04/10/24at 14:08; Start 04/10/24 at 12:30; Stop 04/10/24 at 12:31; Status DC Magnesium Sulfate 50 ml @ 0 mls/hr PROTOCOL PRN IV Last administered on 04/10/24at 20:04; Start 04/10/24 at 17:00; Stop 05/10/24 at 16:59 Melatonin 5 mg ONCE ONCE PO Last administered on 04/10/24at 20:03; Start 04/10/24 at 21:00; Stop 04/10/24 at 21:01; Status DC JUAN SALMON MD Apr 11, 2024 07:42
--- NOTE | 2024-04-11 07:45 | PN ---
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 Indeterminate diastolic dysfunction. Left atrium is moderately dilated Non-STEMI type 2, likely due to supply demand ischemia Lexiscan Cardiolite 09/09/23 normal stress test, normal left ventricular perfusion study, scan indicates low risk for cardiac events PET scan pending for evaluation of lung nodules 02/10/24, [place] [facility] and Oskar peck HDL cholesterol ranges between 123 and 148 and LDL ranges between 45 and 58 from March 2022-August 2023-February 2024 History syncope before October 2021 Paroxysmal atrial fibrillation documented by monitoring before October 2021 Patient declined anticoagulation for atrial fibrillation because he wanted to continue using alcohol and desired not to take a drug that could cause bleeding History of severe GI bleeding requiring transfusion with documentation of peptic ulcer as per the patient's statement, 2021 Interval History: This 68-year-old male patient came to the hospital for endoluminal graft repair of abdominal aorta for aortic dissection with saccular aneurysm of contained rupture. Patient underwent endoluminal graft repair of abdominal aorta with snorkeling of left accessory renal artery of CATH LAB NURSE of left common external iliac artery on 04/10/2024. The procedure went well without any complications. The patient has been doing better and is stable since the surgery. His vitals are stable. Patient has been afebrile. Temperature 98.1 F, pulse rate running in 80s, respiratory rate 17 and blood pressure is 141/85 mmHg, SpO2 98% on room air. He diuresed 115 mL yesterday. The patient has developed developed left brachial hematoma due to 7 Japanese sheath. On examination the patient has a redness and swelling on his left brachial side. The hematoma is approximately 5 x 5 cm in size. It is nontender on palpation. The radial pulses are palpable. The dorsalis pedis pulses are palpable. The abdomen is soft and the femoral access dressing is clean and dry. Patient's hemoglobin is to 10.7 from 13.6, hematocrit 31.3, MCV 103.3 and WBC 10.4. His sodium is 136, potassium 4.5, chloride 103, carbon dioxide 28, BUN 14, create 1. Random glucose 122 and total calcium 7.6. His magnesium is 2.30 today after replacement. Patient continues taking atorvastatin 20 mg, famotidine 20 mg, Flomax 0.4 mg, metoprolol tartrate 100 mg, losartan potassium 50 mg, aspirin 81 mg and sucralfate 1 g. Physical Examination: GENERAL: [No acute distress.] HEAD: [Normal with no signs of head trauma.] EYES: [PERRLA, EOMI, conjunctiva and sclera normal.] ENT: [Hearing grossly intact, normal oropharynx.] NECK: [Supple without JVD. There is no tenderness, lymphadenopathy, or masses. No thyromegaly. Normal carotid upstrokes without bruits.] LUNGS: [Clear breath sounds bilaterally. No wheezes, or rhonchi.] HEART: [Normal rate and rhythm. Normal S1 and S2 without mumurs, gallop or rub.] VASC: [Peripheral pulses +2 bilaterally.] ABD: [Bowel sounds normal, soft, nontender, no masses, no organomegaly. No audible bruits.] : [Not examined] LYMPH: [No lymphadenopathy noted.] EXT: Hematoma on left upper extremity on brachial side. SKIN: [No rashes or lesions noted.] NEURO: [Awake, alert, and oriented x3. No focal sensory or strength deficits noted.] Laboratory: [ ] Hematology Labs: Test 04/11/24 03:59 Range/Units White Blood Count 10.4 4.8-10.8 K/uL Red Blood Count 3.03 L 4.50-6.20 MIL/uL Hemoglobin 10.7 L 14.0-18.0 g/dL Hematocrit 31.3 L 42-54 % Mean Corpuscular Volume 103.3 H 79-99 fL Mean Corpuscular Hemoglobin 35.3 H 27.0-33.0 pg Mean Corpuscular Hemoglobin Concent 34.2 32.0-36.0 g/dL Red Cell Distribution Width 13.7 11.0-15.5 % Platelet Count 198 130-400 K/uL Mean Platelet Volume 10.0 7.5-10.5 fL Nucleated Red Blood Cells 0.0 0.0-0.19 % Chemistry Labs: Test 04/11/24 03:59 04/10/24 16:07 Range/Units Sodium Level 136 136-145 mmol/L Potassium Level 4.5 3.5-5.1 mmol/L Chloride Level 103 101-111 mmol/L Carbon Dioxide Level 28 21-32 mmol/L Blood Urea Nitrogen 14 7-18 mg/dL Creatinine 1.0 0.5-1.3 mg/dL Glomerular Filtration Rate Calc 82 >90 mL/min Random Glucose 122 H 70-105 mg/dL Total Calcium 7.6 L 8.5-10.1 mg/dL Magnesium Level 2.30 1.80-2.40 mg/dL Whole Blood Glucose 74 70-110 MG/DL Coagulation Labs: Test 04/10/24 14:56 Range/Units Activated Partial Thromboplast Time 34.0 26.3-35.5 SEC Diagnostics / Radiology: [facility] [id number] [place] [id number] IMAGING REPORT Signed PATIENT: CESAR LUGO MR#: [id number] : 1955 SEX: M AGE: 68 LOCATION: ORDER 1 STATUS: PRE IN REPORT#: [id number] SERVICE 9 REASON: PRE OP ORDERING PHYSICIAN: Jarred ERICKSON II, MD PROCEDURE: CXR1VW - CHEST 1VW CHEST 1VW HISTORY: Preop COMPARISON: None FINDINGS: A frontal projection of the chest was obtained. No acute pulmonary infiltrates is seen. The heart is normal in size. Prominent interstitial markings are seen. Degenerative changes are seen. Aortic calcifications are seen. IMPRESSION: 1. No acute pulmonary infiltrate is seen. DICTATED BY: ROGE FLORES MD DATE: 04/07/241101 ELECTRONICALLY SIGNED BY: ROGE FLORES MD DATE: 04/07/241104 Plan: We will order left brachial ultrasound to rule out pseudoaneurysm or active bleeding. If if ultrasound comes back negative then he is stable for discharge home. ATTESTATION BY PHYSICIAN I have seen and examined the patient. I reviewed the documentation, medical decision making, and treatment plan as noted by the resident provider above. I agree with the findings and plan of care. Josette Erickson MD, KRUPALI P MD Apr 11, 2024 07:45
--- NOTE | 2024-04-11 08:26 | HMCIMG ---
US ARTERIAL UNILA UPP EXT DUPL REASON: left briachial artery R/O pseudoaneurysm/ Hematoma. Notify MD results COMPARISON: None TECHNIQUE: Routine vascular imaging protocol was performed with spectral analysis and color flow Doppler technique. FINDINGS: There are normal-appearing triphasic waveforms present throughout the right upper extremity. As includes radial and ulnar arteries. Particular attention shows no evidence of radio pseudoaneurysm. IMPRESSION: 1. Normal right upper extremity arterial Doppler vascular evaluation. 2. No evidence of pseudoaneurysm.
--- NOTE | 2024-04-11 08:43 | CONS ---
[facility] CONSULTATION NOTE Date Patient Seen: Apr 11, 2024 Time of Visit: 08:35 Supervising Physician: Noel Louise Reason for Consultation: Left lung mass Primary Care Physician: Dr. Cayla Pepe Outpatient Specialists: Dr. Oskar Shipman, Dr. Dugan Inpatient Consults: Dr. Raymond, Dr. Fitzgerald, Dr. Millan PROBLEM LIST: Left lung mass- 1.1 cm Infrarenal abdominal aortic aneurysm with aortic dissection Status post placement of endoluminal graft to the left accessory renal vein, balloon angioplasty and stent the left common and external iliac arteries, placement of endoluminal graft to abdominal aorta on 04/10/2024 Macrocytic normochromic anemia Hypertension COPD without exacerbation Current cigarette smoker Alcohol abuse History of hypertension, atrial fibrillation, COPD, current cigarette smoker 50 pack, left lung mass HPI: This is 68-year-old male with past medical history of hypertension, atrial fibrillation, smoker, left lung nodule who came to the hospital for an elective endoluminal graft procedure which was done yesterday. [facility] is consulted for left lung mass. Patient reported that he smokes on daily basis for 50 years. He has seen Dr. Oskar Shipman as outpatient. He recommended to see Dr. Dugan for lung biopsy which there is a plan for this in near future. Otherwise he denies any hemoptysis or acute shortness of breath. HTN Atrial fibrillation COPD PAST SURGICAL HX: noncontributory SOCIAL HISTORY: Current tobacco abuse, 1 pack a day, 50 years Current EtOH use Denies illicit drug use Coded Allergies: Penicillins (Unverified Allergy, Intermediate, HIVES, 03/11/23) REVIEW OF SYSTEMS: General: No Fever, No Chills, No Night Sweats, No Fatigue, No Malaise, No Appetite HEENT: No Head Aches, No Visual Changes, No Eye Pain, No Ear Pain, No Dysph yuni, No Sinus Congestion, No Post Nasal Drip, No Sore Throat Pulmonary: No Dyspnea; No Cough, No Pleuritic Chest Pain Cardiovascular: No: Chest Pain, Palpitations, Orthopnea, Paroxysmal Noc. Dyspnea, Edema, Lt Headedness Gastrointestinal: No: Nausea, Vomiting, Abdominal Pain, Diarrhea, Constipation, Melena, Hematochezia Genitourinary: No Dysuria, No Frequency, No Incontinence, No Hematuria, No Retention Musculoskeletal: No: other, neck pain, shoulder pain, arm pain, back pain, hand pain, leg pain, foot pain Skin: No Urticaria, No Rash Neurological: No: Weakness, Numbness, Incoordination, Change in speech, Confusion, Seizures PHYSICAL EXAM: GENERAL: alert, weak, awake oriented x 3 HEENT: EOMI, Sclera non icteric, moist mucosa NECK: Supple, no JVD, trachea midline LUNGS: Clear breath sounds bilaterally. No wheezes HEART: Regular rate and rhythm. Normal S1 and S2, without murmurs ABD: Abdomen soft, nontender. Bowel sounds present EXT: No clubbing cyanosis or edema NEURO: Alert and oriented to person, follows commands Vital Signs (last 8hr) Date Time Temp Pulse Resp B/P (MAP) Pulse Ox O2 Delivery O2 Flow Rate FiO2 04/11/24 07:00 75 20 115/70 97 Room Air 04/11/24 05:55 88 17 141/85 98 Room Air 04/11/24 04:47 73 19 117/75 99 Room Air 04/11/24 04:00 98 Room Air* 0 21 04/11/24 03:47 98.1 80 19 135/83 99 Room Air 04/11/24 02:47 71 15 133/78 99 Room Air 04/11/24 02:40 78 23 137/64 99 Room Air 04/11/24 01:47 72 18 122/73 99 Room Air 04/11/24 00:47 77 17 154/67 99 Room Air LABS: Hematology Labs: Test 04/11/24 03:59 Range/Units White Blood Count 10.4 4.8-10.8 K/uL Red Blood Count 3.03 L 4.50-6.20 MIL/uL Hemoglobin 10.7 L 14.0-18.0 g/dL Hematocrit 31.3 L 42-54 % Mean Corpuscular Volume 103.3 H 79-99 fL Mean Corpuscular Hemoglobin 35.3 H 27.0-33.0 pg Mean Corpuscular Hemoglobin Concent 34.2 32.0-36.0 g/dL Red Cell Distribution Width 13.7 11.0-15.5 % Platelet Count 198 130-400 K/uL Mean Platelet Volume 10.0 7.5-10.5 fL Nucleated Red Blood Cells 0.0 0.0-0.19 % Chemistry Labs: Test 04/11/24 03:59 04/10/24 16:07 Range/Units Sodium Level 136 136-145 mmol/L Potassium Level 4.5 3.5-5.1 mmol/L Chloride Level 103 101-111 mmol/L Carbon Dioxide Level 28 21-32 mmol/L Blood Urea Nitrogen 14 7-18 mg/dL Creatinine 1.0 0.5-1.3 mg/dL Glomerular Filtration Rate Calc 82 >90 mL/min Random Glucose 122 H 70-105 mg/dL Total Calcium 7.6 L 8.5-10.1 mg/dL Magnesium Level 2.30 1.80-2.40 mg/dL Whole Blood Glucose 74 70-110 MG/DL Coagulation Labs: Test 04/10/24 14:56 Range/Units Activated Partial Thromboplast Time 34.0 26.3-35.5 SEC DIAGNOSTICS / RADIOLOGY RESULTS: [ ] PLAN NEURO: Minimize central acting medications as possible. Fall Precautions. Well lighted room through the day and minimize interruptions through the night to prevent acute delirium. PULMONARY: Given exposure to family who smoked for years, patient has developed a COPD. He has seen pulmonology as outpatient with who he has seen one time. The left lung nodule is located the in the middle of the left lobe. At this time patient has no indication for immediate biopsy. This can be done as outpatient with CV surgery as planned before. From pulmonary stand point patient is stable, he can continue home regimen with albuterol. Follow up with pulmonary services in two weeks post discharge. CARDIOVASCULAR: Follow hemodynamics. LINES: PIV GI & NUTRITION: Continue nutritional support Aspirations precautions Prokinetic agents and laxatives as needed KIDNEYS & ELECTROLYTES: Strict monitoring of intake and output Daily weights Avoid nephrotoxic agents Monitor electrolytes and replace as needed Goal urine output of 30mL/hr or 0.5mL/kg/hr ENDOCRINE: Maintain blood glucose between 100-180 at all times. Insulin sliding scale for blood glucose management INFECTIOUS DISEASE: Trend temperature. Caldwell-culture if febrile. HEMATOLOGY & COAGULATION: Monitor H&H. Keep Hgb > 7 Transfuse 1 unit of PRBC for Hgb < 7 Transfuse 1 pack of platelets of platelets < 20, 000 Watch for any signs and symptoms of bleeding SKIN: Pressure ulcer prevention per facility protocol Rehab: PT/OT Prophylaxis: GI: Pepcid DVT: Lovenox Code Status: Full Resuscitation Disposition: ICU- okay to transfer out of ICU Other: Total patient care time exceeds 35 minutes excluding all procedures. Case was discussed and seen with my supervising physician. The above plan was formulated and agreed upon. DAWOOD RONDON [facility] Apr 11, 2024 08:42
[2024-04-11] MEDS: FAMOTIDINE 20MG TAB PO SCH (08:53)
[2024-04-11] MEDS: LoSARTan 50 MG TABLET PO SCH (08:53)
[2024-04-11] MEDS: ASPIRIN 81MG CHEW TAB PO SCH (08:53)
[2024-04-11] MEDS: tamSULOsin HCL 0.4 MG CAP.ER.24H PO SCH (08:53)
[2024-04-11] MEDS: metoPROLOL tartRATE 50 MG TAB PO SCH (08:53)
[2024-04-11] MEDS ORDERED: ASPI-1005 PO (08:55)
--- NOTE | 2024-04-11 08:58 | DS ---
Discharge Summary Hospital Course Summary: Patient Information: *Name:Maikel Leahy E3ugene *Date of :57 *Admission Date:04/10/24 *Discharge Date:04/11/24 Attending Physician:Dr Orozco Admitting Diagnosis:Abdominal aortic dissection, saccular aneurysm Discharge Diagnosis:s/p Endoluminal graft replacement in the left accessory renal artery and abdominal aorta Course in Hospital: Patient was admitted to the hospital on 04/10/24 for an elective surgical procedure by Dr Orozco. Patient had a successful endoluminal graft placement in the left accessory renal artery and in the abdominal aorta on 04/10/24. He tolerated the procedure very well. Post op day1, brachial redness and swelling was noted, and an ultrasound of the right upper extremity was ordered , which showed a normal right upper extremity and no evidence of a pseudoaneurysm. Over the course of his hospitalization, his symptoms improved significantly. Patient is a heavy smoker and drinker. Educated him about the need to stop. Verbalized understanding. Medications on Discharge: Aspirin 81mg daily, Metoprolol 100mg daily, Atorvastatin 20mg daily, Losartan 50mg daily Discharge Instructions: *Follow up with your primary care physician and dentistry teacher in 2 - 3 days after discharge. *Continue all medications as prescribed. Do not discontinue or change dosages without consulting your PCP. *Gradually resume normal activities as tolerated. *Continue a balanced diet . Reduce salt intake to help manage BP. *Seek immediate medical attention if you experience chest pain, SOB or severe headache. *Smoking cessation is strongly advised. Resources for quitting smoking are available upon request. Discharged to: Home Condition on Discharge: Stable Pulp House Supervisor(s): [facility] for medical management Procedure(s): Endoluminal graft replacement in the left accessory renal artery and the abdominal aorta. Assessment/Plan: ASSESSMENT: Abdominal aortic dissection with saccular aneurysm, status post endoluminal graft placement in the left accessory renal artery, and bifurcated endoluminal graft placement in the abdominal aorta on 04/10/2024. CAD Essential hypertension Hyperlipidemia BPH COPD Lung mass Current/active smoker PLAN: Continue admission to telemetry floor under hospitalist team Obtain home medications, reconcile and resume accordingly Patient is status post successful endoluminal graft placement as mentioned above. Continue to follow up with Cardiology recommendations Labs: CBC BMP PT/PTT, UA Pain control CLD and advance as tolerated DVT and GI prophylaxis P.r.n. medications for fever, pain, nausea, constipation Follow-up a.m. labs Further orders per hospital course ADVANC[facility] CARE PLANNING 1. Which of the following were discussed? Hospice Care - No Therapeutic options - Yes Advance Directives - Yes Other discussions - 2. Discussed with who? The patient 3. Voluntary nature of this service was explained to the patient? Yes 4. Amount of time spent - __ 20 minutes 5. Reviewed by Physician? (if this service was performed by NPP) Yes Discharge Instructions: Discharge Instructions: *Follow up with your primary care physician in 2 - 3 days after discharge. *Continue all medications as prescribed. Do not discontinue or change dosages without consulting your PCP. *Gradually resume normal activities as tolerated. *Continue a balanced diet . Reduce salt intake to help manage BP. *Seek immediate medical attention if you experience chest pain, SOB or severe headache. *Smoking cessation is strongly advised. Resources for quitting smoking are available upon request. Home Medications: Active Scripts Aspirin (ASPIRIN 81MG CHEW TAB) 81 Mg Tab.chew, 81 MG PO DAILY, #30 TAB.CHEW Prov:JUAN SALMON MD 04/11/24 Reported Medications Metoprolol Tartrate (Metoprolol Tartrate) 50 Mg Tablet, 100 MG PO DAILY, TAB 04/10/24 Atorvastatin Calcium (Atorvastatin Calcium) 20 Mg Tablet, 1 TAB PO DAILY for 30 Days, #30 TAB 0 Refills 04/07/24 Sucralfate (Sucralfate) 1 Gram Tablet, 1 TAB PO TID for 30 Days, #90 TAB 0 Refills 04/07/24 Famotidine (Famotidine) 40 Mg Tablet, 1 TAB PO DAILY for 30 Days, #30 TAB 0 Refills 04/07/24 Losartan Potassium (Losartan Potassium) 50 Mg Tablet, 1 TAB PO DAILY for 30 Days, #30 TAB 0 Refills 04/07/24 Tamsulosin HCl (Flomax) 0.4 Mg Cap.er.24h, 0.4 MG PO DAILY, CAPSULE. 02/06/23 Discontinued Reported Medications Hydrocodone/Acetaminophen (Hydrocodon-Acetaminophen 5-325) 5 Mg-325 Mg Tablet, 1 EACH PO Q6HPRN PRN for PAIN, TAB 02/06/23 Discontinued Scripts Pantoprazole Sodium (Protonix) 40 Mg Tablet., 40 MG PO DAILY, #14 TAB 1 Refill Prov:CASIE PARADA MD 03/14/23 Nicotine (Nicotine Patch) 7 Mg/24 Hour Patch.td24, 7 MG TD DAILY, #15 PATCH 1 Refill Prov:CASIE PARADA MD 03/14/23 Metoprolol Succinate (Toprol Xl) 25 Mg Tab.er.24h, 25 MG PO DAILY, #30 TAB 2 Refills Prov:CASIE PARADA MD 03/14/23 Time spent arranging discharge: 1-30 minutes ATTESTATION BY PHYSICIAN I have seen and examined the patient. I reviewed the documentation, medical decision making, and treatment plan as noted by the resident provider above. I agree with the findings and plan of care. MD Matty OBI,JUAN Posey MD Apr 11, 2024 08:58
--- NOTE | 2024-04-11 10:15 | NUR ---
patient leaving home in stable conditions. Patient refused d/c vitals signs prior to leaving. and he is leaving in stable/ good conditions. Transferred via wheelchair. IV's dc. Patient understands and verbalized dc instructions.
[2024-04-11] MEDS ORDERED: atorVAStatin 20 MG TABLET PO SCH (21:00)
== END 2024-04-11 10:18 | disposition home or self-care (01) | DRG 269 ==
LOC: DAHIP 04-10 05:34 → EDSTATUS 04-10 09:00 → 2CV 04-10 11:41 → 2BH 04-11 03:07
PROVIDERS: ADMIT Internal Medicine; ATTEND Internal Medicine
PROC: B410YZZ Fluoroscopy of Abdominal Aorta using Other Contrast (ICD-10-PCS; principal; 2024-04-10)
PROC: 04U03JZ Supplement Abdominal Aorta with Synthetic Substitute, Percutaneous Approach (ICD-10-PCS; 2024-04-10)
PROC: 047D3ZZ Dilation of Left Common Iliac Artery, Percutaneous Approach (ICD-10-PCS; 2024-04-10)
PROC: 047J3ZZ Dilation of Left External Iliac Artery, Percutaneous Approach (ICD-10-PCS; 2024-04-10)
PROC: 04HA3DZ Insertion of Intraluminal Device into Left Renal Artery, Percutaneous Approach (ICD-10-PCS; 2024-04-10)
PROC: 04QK3ZZ Repair Right Femoral Artery, Percutaneous Approach (ICD-10-PCS; 2024-04-10)
PROC: 04QL3ZZ Repair Left Femoral Artery, Percutaneous Approach (ICD-10-PCS; 2024-04-10)
PROC: B41BYZZ Fluoroscopy of Other Intra-Abdominal Arteries using Other Contrast (ICD-10-PCS; 2024-04-10)
PROC: B414YZZ Fluoroscopy of Superior Mesenteric Artery using Other Contrast (ICD-10-PCS; 2024-04-10)
PROC: B418YZZ Fluoroscopy of Bilateral Renal Arteries using Other Contrast (ICD-10-PCS; 2024-04-10)
DX: I71.33 Infrarenal abdominal aortic aneurysm, ruptured (principal); I74.5 Embolism and thrombosis of iliac artery; I71.02 Dissection of abdominal aorta; I73.9 Peripheral vascular disease, unspecified; I10 Essential (primary) hypertension; E78.5 Hyperlipidemia, unspecified; I51.7 Cardiomegaly; I95.1 Orthostatic hypotension; D64.9 Anemia, unspecified; R91.8 Other nonspecific abnormal finding of lung field; N40.0 Benign prostatic hyperplasia without lower urinary tract symptoms; I25.10 Atherosclerotic heart disease of native coronary artery without angina pectoris; J44.89 Other specified chronic obstructive pulmonary disease; F10.10 Alcohol abuse, uncomplicated; F17.210 Nicotine dependence, cigarettes, uncomplicated; Q27.2 Other congenital malformations of renal artery; Z79.82 Long term (current) use of aspirin; Z79.899 Other long term (current) drug therapy; Z87.11 Personal history of peptic ulcer disease; Z88.0 Allergy status to penicillin; Z95.1 Presence of aortocoronary bypass graft; Z82.49 Family history of ischemic heart disease and other diseases of the circulatory system; Z80.1 Family history of malignant neoplasm of trachea, bronchus and lung
CPT/HCPCS: 34705; 34713; 36245; 36415; 37236; 71045; 75726; 80048; 81001; 82948; 83735; 85025; 85027; 85347; 85610; 85730; 86850; 86900; 86901; 86923; 93005; 93931; A4344; A4606; C1725; C1760; C1769; C1887; C1893; C1894; G0378; J1644; J2250; J2270; J2371; J2405; J2704; J2710; J3010; J3475; J3490; J7030; J7120; Q9967; A4215; A4216; A4221; A4222; A4223; A4600; A4663; C1874; J0690

== ENCOUNTER → 2024-05-12 | Outpatient (CLI) | payer MEDICARE ==
[~2024-05-12] MED LIST changes: +ASPI-1005 PO; +ATOR20TA65 PO; +FAMO40TA7 PO; +IOHEXOL 350 MG/ML 100ML INFUS..BTL IV ONE; +LOSA50TA64 PO; +METO50TA18 PO; +SUCR1TAB2 PO
--- NOTE | 2024-05-12 12:06 | HMCIMG ---
CT ANGIO ABD/PEL PRE AAA 3MM HISTORY: Abdominal aortic aneurysm COMPARISON: 05/20/2023 TECHNIQUE: CT angiography of the abdomen and pelvis was obtained using angiographic technique with maximum intensity projection reconstruction images. Patient was given 100 cc of Omnipaque through intravenous route. Oral contrast was not given. FINDINGS: No pleural effusion is seen bilaterally. There is no evidence of parenchymal disease or pulmonary nodule of the visualized lower lungs. Degenerative changes of the thoracolumbar spine are present. The heart is not enlarged. Intrahepatic biliary air is seen. The liver, spleen, adrenal glands and pancreas are unremarkable. There is no evidence of hydronephrosis bilaterally. No evidence of renal stone is seen. There is diverticulosis. Fecal material is seen in the colon. There are normal size retroperitoneal and mesenteric lymph nodes. No ascites is seen. Atherosclerotic changes are present. Delay enhancement is noted of the left kidney may be related to early vascular compromise. Clinical correlation is recommended. There is left renal stent. There is diffuse atherosclerotic disease. Abdominal aortic aneurysm repair changes are seen with aortobilateral iliac stent graft. No leakage is seen. The celiac, superior mesenteric and bilateral renal arteries are grossly patent. The visualized portion of the iliac and femoral arterial systems are also grossly patent. Pelvic sidewalls are symmetric bilaterally. Bladder is well distended without wall thickening. IMPRESSION: 1. No leakage is seen of the aorta bilateral iliac stent grafts. There is left renal stent. There is segmental delay and enhancement noted of the left kidney in the arterial phase images may be related to early vascular compromise. This has delayed enhancement. CT was performed with one or more following dose reduction techniques: automated exposure control, adjustment of the mA and kv according to patient's size, or use of a iterative reconstruction technique.
== END | disposition home or self-care (01) ==
LOC: RAH 08:44
PROVIDERS: ATTEND Internal Medicine Cardiovascular Disease
DX: I71.40 Abdominal aortic aneurysm, without rupture, unspecified (principal); K57.90 Diverticulosis of intestine, part unspecified, without perforation or abscess without bleeding; I70.8 Atherosclerosis of other arteries; M47.815 Spondylosis without myelopathy or radiculopathy, thoracolumbar region
CPT/HCPCS: 74174; Q9967

== ENCOUNTER → 2024-07-19 | Outpatient (CLI) | payer MEDICARE ==
[~2024-07-19] MED LIST changes: -IOHEXOL 350 MG/ML 100ML INFUS..BTL IV ONE
--- NOTE | 2024-07-24 14:48 | HMCSR ---
APPROVED REPORT Bilateral Lower Extremity Venous Study for Indications PVD Vein Imaging CFV (R): Normal flow, augmentation and compression. No evidence of DVT. 10.0mm 461ms of reflux. SFJ (R): Normal flow, augmentation and compression. No evidence of DVT. FEM (R): Normal flow, augmentation and compression. No evidence of DVT. POP (R): Normal flow, augmentation and compression. No evidence of DVT. DFV (R): Normal flow, augmentation and compression. No evidence of DVT. PTV (R): Normal flow, augmentation and compression. No evidence of DVT. Peroneals (R): Normal flow, augmentation and compression. No evidence of DVT. CFV (L): Normal flow, augmentation and compression. No evidence of DVT. 12.2mm 733ms of reflux. SFJ (L): Normal flow, augmentation and compression. No evidence of DVT. FEM (L): Normal flow, augmentation and compression. No evidence of DVT. POP (L): Normal flow, augmentation and compression. No evidence of DVT. DFV (L): Normal flow, augmentation and compression. No evidence of DVT. PTV (L): Normal flow, augmentation and compression. No evidence of DVT. Peroneals (L): Normal flow, augmentation and compression. No evidence of DVT. Technologist Impression Deep veins of bilateral lower extremities appear patent and compressible without thrombus No significant deep vein reflux Superficial venous insufficiency seen in the RSSV (small in size) RGSV junction 5.1mm 450ms thigh 3.3mm 0.0ms knee 1.0mm 394ms calf 1.8mm 0.0ms RSSV prox 1.8mm 0.0ms mid 1.7mm 1483ms (small size) LGSV junction 4.7mm 417ms thigh 3.3mm 0.0ms knee 2.9mm 0.0ms calf 1.4mm 0.0ms LSSV Prox 1.5mm 0.0ms Mid 2.0mm 0.0ms Conclusion Deep veins of bilateral lower extremities appear patent and compressible without thrombus No significant deep vein reflux Superficial venous insufficiency seen in the RSSV (small in size) Conclusion Deep veins of bilateral lower extremities appear patent and compressible without thrombus No significant deep vein reflux Superficial venous insufficiency seen in the RSSV (small in size)
== END | disposition home or self-care (01) ==
LOC: SHCH 09:20
PROVIDERS: ATTEND Internal Medicine Cardiovascular Disease
DX: I87.2 Venous insufficiency (chronic) (peripheral) (principal); I73.9 Peripheral vascular disease, unspecified
CPT/HCPCS: 93970